=== PATIENT | male | born 1970 | race Caucasian/White ===

== ENCOUNTER → 2022-12-16 09:53 | Outpatient (REF) | payer BC, SELFPAY ==
[2022-12-16 10:52] LABS: INR 2.79; PT 29.9 Sec (11.4-14.6)
== END ==
LOC: REG 09:53
PROVIDERS: ATTENDING PHYSICIAN Internal Medicine Cardiovascular Disease
DX: Z95.2 Presence of prosthetic heart valve (principal); E78.5 Hyperlipidemia, unspecified
CPT/HCPCS: 36415; 85610

== ENCOUNTER → 2023-03-26 08:38 | Outpatient (REF) | payer BC, SELFPAY ==
[2023-03-26 09:48] LABS: INR 2.63; PT 28.4 Sec (11.4-14.6)
== END ==
LOC: REG 08:38
PROVIDERS: ATTENDING PHYSICIAN Internal Medicine Cardiovascular Disease; FAMILY PHYSICIAN Family Medicine
DX: Z95.2 Presence of prosthetic heart valve (principal)
CPT/HCPCS: 36415; 85610

== ENCOUNTER → 2023-04-22 10:53 | Outpatient (REF) | payer BC, SELFPAY ==
[2023-04-22 11:22] LABS: INR 3.26; PT 33.7 Sec (11.4-14.6)
== END ==
LOC: REG 10:53
PROVIDERS: ATTENDING PHYSICIAN Internal Medicine Cardiovascular Disease; FAMILY PHYSICIAN Family Medicine
DX: Z95.2 Presence of prosthetic heart valve (principal)
CPT/HCPCS: 36415; 85610

== ENCOUNTER → 2023-05-08 09:46 | Outpatient (REF) | payer BC, SELFPAY ==
[2023-05-08 10:31] LABS: INR 2.72; PT 28.7 Sec (11.4-14.6)
== END ==
LOC: REG 09:46
PROVIDERS: ATTENDING PHYSICIAN Internal Medicine Cardiovascular Disease; FAMILY PHYSICIAN Family Medicine
DX: Z95.2 Presence of prosthetic heart valve (principal)
CPT/HCPCS: 36415; 85610

== ENCOUNTER → 2023-05-25 09:02 | Outpatient (REF) | payer BC, SELFPAY ==
[2023-05-25 10:22] LABS: INR 2.86; PT 29.9 Sec (11.4-14.6)
[2023-05-25 10:42] LABS: ALT (SGPT) 30 U/L (0-50); AST (SGOT) 29 U/L (17-59); Albumin 4.6 g/dl (3.5-5.0); Alkaline Phosphatase 56 U/L (38-126); Blood Urea Nitrogen 15 mg/dl (9-20); Calcium 9.5 mg/dl (8.4-10.2); Carbon Dioxide 28 mmol/L (22-30); Chloride 98 mmol/L (98-107); Glucose 116 mg/dl (70-99); HDL Cholesterol 39 mg/dl; LDL Cholesterol, Calculated 32 mg/dl; Potassium 3.6 mmol/L (3.5-5.1); Sodium 137 mmol/L (135-145); Total Cholesterol 113 mg/dl (50-199); Total Protein 7.5 g/dl (6.3-8.2); Triglyceride 212 mg/dl (10-149); Very Low Density Lipoprotein 42 mg/dl (0-30); eGFR > 60.00
[2023-05-25 12:29] LABS: Glycohemoglobin (HgbA1c) 6.7 % (4.0-5.6)
== END ==
LOC: REG 09:02
PROVIDERS: ATTENDING PHYSICIAN Internal Medicine Cardiovascular Disease; FAMILY PHYSICIAN Family Medicine
DX: Z95.2 Presence of prosthetic heart valve (principal); E78.5 Hyperlipidemia, unspecified; R73.9 Hyperglycemia, unspecified
CPT/HCPCS: 36415; 80053; 80061; 83036; 85610

== ENCOUNTER → 2023-06-24 08:46 | Outpatient (REF) | payer BC, SELFPAY ==
[2023-06-24 10:01] LABS: INR 2.58
== END ==
LOC: REG 08:46
PROVIDERS: ATTENDING PHYSICIAN Internal Medicine Cardiovascular Disease; FAMILY PHYSICIAN Family Medicine
DX: Z95.2 Presence of prosthetic heart valve (principal)
CPT/HCPCS: 36415; 85610

== ENCOUNTER → 2023-07-23 09:28 | Outpatient (REF) | payer BC, SELFPAY ==
[2023-07-23 11:15] LABS: INR 2.26; PT 25.3 Sec (11.4-14.6)
== END ==
LOC: REG 09:28
PROVIDERS: ATTENDING PHYSICIAN Internal Medicine Cardiovascular Disease; FAMILY PHYSICIAN Family Medicine
DX: Z95.2 Presence of prosthetic heart valve (principal)
CPT/HCPCS: 36415; 85610